=== PATIENT | female | born 1975 | race Caucasian/White ===

== ENCOUNTER 2022-12-23 21:18 | Emergency (ER) | payer MEDICAID ==
[~2022-12-23] VITALS: Ht 162.6 cm; Wt 75.0 kg
--- NOTE | 2022-12-23 21:36 | NUR ---
FRIEND ROLAND: [phone]
--- NOTE | 2022-12-23 22:22 | NUR ---
patient alert at this time. Provider notified, at bedside. Patient states she does not know the name of her seizure medications, and "I have been taking them for a few months."
[2022-12-23 22:26] LABS: BASOPHILS % (AUTO) 0.7 % (0-1); EOSINOPHILS % (AUTO) 0.7 % (0-6); HEMATOCRIT 33.7 % (35.0-45.0); HEMOGLOBIN 11.6 g/dl (12.0-16.0); LYMPHOCYTES # (AUTO) 1.5 X10'3 (1.1-4.8); LYMPHOCYTES % (AUTO) 33.4 % (21-51); MEAN CORPUSCULAR HEMOGLOBIN 30.5 PG (27.0-31.0); MEAN CORPUSCULAR HGB CONC 34.4 g/dL (33.0-36.5); MEAN CORPUSCULAR VOLUME 88.9 FL (78-98); MONOCYTES # (AUTO) 0.4 X10'3 (0-0.9); MONOCYTES % (AUTO) 9.2 % (2-12); NEUTROPHILS # (AUTO) 2.5 X10'3 (1.8-7.7); PLATELET COUNT 274 X10'3 (140-440); RED BLOOD COUNT 3.79 X10'6 (4.20-5.60); RED CELL DISTRIBUTION WIDTH 14.9 % (11.5-14.5); WHITE BLOOD COUNT 4.4 X10'3 (4.5-11.0)
[2022-12-23 22:43] LABS: ALANINE AMINOTRANSFERASE 16 U/L (12-78); ALBUMIN 3.8 G/DL (3.4-5.0); ALBUMIN/GLOBULIN RATIO 1.2 (1.1-1.5); ALKALINE PHOSPHATASE 64 IU/L (46-116); ANION GAP 7 (8-16); ASPARTATE AMINO TRANSFERASE 12 U/L (10-37); BILIRUBIN,TOTAL 0.1 MG/DL (0.1-1.0); BLOOD UREA NITROGEN 7 MG/DL (7-18); BUN/CREATININE RATIO 10.1 (10.0-20.0); CALCIUM 9.4 MG/DL (8.5-10.1); CHLORIDE 96 MMOL/L (99-107); CREATININE 0.69 MG/DL (0.40-0.90); GLUCOSE 108 MG/DL (70-104); POTASSIUM 3.6 MMOL/L (3.5-5.1); SODIUM 129 MMOL/L (135-145); TOTAL CARBON DIOXIDE 26.2 MMOL/L (24-32); TOTAL PROTEIN 6.9 G/DL (6.4-8.2); eCRCL 86 ML/MIN; eGFR > 90 ML/MIN
[2022-12-23 22:45] VITALS: TEMP 98.6
[2022-12-23 22:47] LABS: VALPROATE < 3.0 UG/ML (50-100)
[2022-12-23 23:48] LABS: URINE HCG NEGATIVE (NEG)
--- NOTE | 2022-12-24 00:32 | NUR ---
PATIENT TO CT WITH TECH.
--- NOTE | 2022-12-24 00:42 | NUR ---
PATIENT BACK FROM CT. CALLED PHARMACY, STATES THEY WILL PREPARE KEPPRA AND NOTIFY STAFF WHEN READY FOR KEY OPERATOR.
[2022-12-24] MEDS ORDERED: levetiracetam inj 2,000 MG in normal saline 250ml IV soln 250 ML IV ONE (01:15)
[2022-12-24 01:33] VITALS: BP 111/71; PULSE 79; RESP 15; O2SAT 94
[2022-12-24] MEDS ORDERED: KEP500T PO (01:38)
--- NOTE | 2022-12-24 01:47 | NUR ---
PATIENT MADE THE DECISION TO LEAVE AMA, PROVIDER DISCUSSED RISKS WITH PATIENT, PATIENT VERBALIZED UNDERSTANDING. PATIENT SIGNED AMA FORM, AMBULATORY UPON LEAVING ED, PATIENT HAS RIDE HOME WITH SIGNIFICANT OTHER.
== END 2022-12-24 01:50 | disposition left against medical advice (07) ==
LOC: ER 21:25 → EDBD 21:25 → ER 12-24 01:50
DX: G40.909 Epilepsy, unspecified, not intractable, without status epilepticus (principal); Z79.899 Other long term (current) drug therapy
CPT/HCPCS: 36415; 70450; 80053; 80164; 80177; 81025; 85025; 96365; 99285; J1953; J7050